=== PATIENT | female | born 1955 | race Caucasian/White ===

== ENCOUNTER 2022-11-06 19:32 | Emergency (ER) | payer MEDICARE, SELFPAY ==
--- NOTE | 2022-11-06 19:34 | ED.FEMALEGU ---
HPI - Female Genitourinary General Chief complaint: Urogenital-Female Stated complaint: UTI SYMPTOMS Time Seen by Provider: 11/06/22 19:33 Source: patient Mode of arrival: ambulatory Limitations: no limitations History of Present Illness HPI Narrative: patient is a 67-year-old female that presents with 1 day of urinary frequency burning, blood in urine. Patient states last night she felt bloated and crampy. Patient states she has been drinking lots of water today but symptoms are persistent. Denies any fever, low back pain, nausea, vomiting, diarrhea. MD elicited complaint: dysuria Related Data Home Medications Medication Instructions Recorded Confirmed amitriptyline 10 mg tablet 10 mg PO DAILY 11/06/22 11/06/22 amlodipine 5 mg tablet 5 mg PO DAILY 11/06/22 11/06/22 dicyclomine 20 mg tablet 20 mg PO DIRECTED 11/06/22 11/06/22 levothyroxine 75 mcg tablet 75 mcg PO DAILY 11/06/22 11/06/22 omeprazole 40 mg capsule,delayed 40 mg PO DAILY 11/06/22 11/06/22 release Allergies Allergy/AdvReac Type Severity Reaction Status Date / Time ciprofloxacin [From Cipro] Allergy Other Verified 11/06/22 19:51 Review of Systems Review of Systems: All systems reviewed & are unremarkable except as noted in HPI and below Constitutional: Constitutional: Denies chills, Denies fever(s), Denies headache(s), Denies malaise and Denies weakness Eyes: Eyes: Denies change in vision, Denies eye discharge and Denies irritation ENT: Denies otalgia, Denies headache(s), Denies nasal congestion, Denies nasal discharge, Denies sinus pain and Denies sore throat Cardiovascular: Cardiovascular: Denies chest pain, Denies edema, Denies palpitations and Denies dyspnea Respiratory: Respiratory: Denies cough and Denies dyspnea Gastrointestinal: Gastrointestinal: Denies abdominal pain, Denies diarrhea, Denies nausea and Denies vomiting Genitourinary: Genitourinary: Denies hematuria, Reports nocturia, Reports dysuria, Denies flank pain and Reports urinary urgency Musculoskeletal: Musculoskeletal: Denies back pain and Denies numbness Integumentary/Breasts: Skin/Breast: Denies pruritus and Denies rash Neurologic: Denies headache(s), Denies numbness and Denies weakness Psychiatric: Psychiatric: Reports no additional psychiatric complaints Endocrine: Endocrine: Denies palpitations PMFSH Comments At time of signature, agree with nursing past medical, surgical, social and family history. There is no relevant family history pertinent to the presenting complaint. Exam Const: General: cooperative, healthy appearing, comfortable, no acute distress and well nourished Nutritional Appearance: well nourished Orientation/consciousness: patient oriented x3 HENMT: Head: normocephalic and atraumatic Ears: external ears normal Face/Nose/Sinus: Normal external nose present, Normal nares present and normal facial exam Face and sinus: normal facial exam Eyes: General: appearance normal, both eyes and all related structures Pupils: Equal, round and reactive pupils present EOM: EOMs intact bilaterally Neck: Neck: normal visual inspection, full ROM and supple Chest: Chest palpation & inspection: normal inspection of the chest Resp: Effort & Inspection: normal respiratory effort and able to speak in complete sentences Cardio: Rate: regular rate Rhythm: regular rhythm GI: Inspection: normal to inspection GI Palp: No abdominal tenderness and Yes Soft to palpation : General: Yes no CVA tenderness Back/Spine/Pelvis: Back: no CVA tenderness Skin: General skin exam: normal color and no rashes or lesions noted Neuro: General: patient oriented x3 and moves all extremities Cranial nerves: Yes Equal, round and reactive pupils present Extrem: General: normal to inspection and full ROM Psych: Appearance: grossly normal and well kempt Course Course Emergency Course: Patient is aware of diagnosis, understands and agrees to treatment plan. Anticipatory
[2022-11-06 19:41] VITALS: BP 130/81; PULSE 65; RESP 16; TEMP 36.3; O2SAT 100
== END 2022-11-06 19:55 | disposition home or self-care (01) ==
PROVIDERS: Emergency Provider Nurse Practitioner Family
DX: N39.0 Urinary tract infection, site not specified (principal); I10 Essential (primary) hypertension; K21.9 Gastro-esophageal reflux disease without esophagitis; E03.9 Hypothyroidism, unspecified
CPT/HCPCS: 81003; 87077; 87086; 87186; 99213; G0463